=== PATIENT | female | born 1945 | race Caucasian/White ===

== ENCOUNTER → 2019-01-16 09:19 | Outpatient (CLI) | payer MEDICARE, SELFPAY ==
[2019-01-16 10:55] LABS: Alanine Aminotransferase 14 IU/L (9-52); Albumin 4.3 g/dL (3.5-5.0); Albumin Globulin Ratio 1.4 (1.0-2.8); Alkaline Phosphatase 104 U/L (38-126); Aspartate Aminotransferase 20 IU/L (14-36); BUN Creatinine Ratio 27.1 (6-22); Bilirubin Total 0.7 mg/dL (0.2-1.3); Blood Urea Nitrogen 19 mg/dL (7-17); Calcium 9.1 mg/dL (8.4-10.2); Carbon Dioxide 25 mmol/L (22-32); Chloride 106 mmol/L (98-107); Estimated Glomerular Filt Rate > 60.0 mL/min (>60); Globulin 3.1 g/dL (1.7-4.1); Glucose 99 mg/dL (80-110); HEMOLYSIS < 15 (0-50); Potassium 4.5 mmol/L (3.4-5.1); Sodium 139 mmol/L (137-145); Total Protein 7.4 g/dL (6.3-8.2)
== END ==
PROVIDERS: PCP Internal Medicine; Visit Provider Internal Medicine
DX: I10 Essential (primary) hypertension (principal)
CPT/HCPCS: 36415; 80053

== ENCOUNTER → 2019-02-01 13:56 | Outpatient (CLI) | payer MEDICARE, SELFPAY ==
--- NOTE | 2019-02-01 | DI.MG.S_ITS ---
UNILATERAL RIGHT DIGITAL SCREENING MAMMOGRAM 3D/2D WITH CAD POST MASTECTOMY: 02/01/2019 CLINICAL: Screening Mammogram. Comparison is made to exams dated: 08/14/2015 mammogram, 11/06/2012 mammogram, and 09/09/2011 mammogram - [facility]. There are scattered fibroglandular elements in right breast. Current study was also evaluated with a Computer Aided Detection (CAD) system. There is an irregular mass with a spiculated margin in the right breast posterior depth superior region seen on the mediolateral oblique view only. There is architectural distortion associated with the mass. This mass appears to project within the lateral right breast on tomosynthesis views but is not included on the field of view of the RCC images and tomosynthesis. There are additional subcentimeter oval circumscribed masses in the right breast central to the nipple middle to posterior depth and within the superior right breast at middle depth on the RMLO view that appear stable to comparison imaging of 08/14/15, consistent with benignity. No other significant masses or calcifications are seen in the breast. IMPRESSION: INCOMPLETE: NEEDS ADDITIONAL IMAGING EVALUATION The irregular spiculated mass in the right breast posterior depth superior region is indeterminate. Additional views with possible ultrasound are recommended. This exam was interpreted at Station ID: [id number]. NOTE: For mammograms, a report in lay terms will be sent to the patient. Approximately 15% of breast malignancies will not be visualized mammographically. In the management of a palpable breast mass, a negative mammogram must not discourage biopsy of a clinically suspicious lesion. Electronically Signed By: Bethel Aguiar M.D. ecl/:02/01/2019 17:18:17 letter sent: Additional Imaging Needed ACR BI-RADS Category 0: Incomplete [id number]
== END ==
PROVIDERS: PCP Internal Medicine; Visit Provider Internal Medicine
DX: Z12.31 Encounter for screening mammogram for malignant neoplasm of breast (principal)
CPT/HCPCS: 77063; 77067

== ENCOUNTER → 2019-02-25 08:05 | Outpatient (CLI) | payer MEDICARE, SELFPAY ==
--- NOTE | 2019-02-25 | DI.MG.S_ITS ---
UNILATERAL RIGHT DIGITAL DIAGNOSTIC MAMMOGRAM 3D/2D WITH ADDITIONAL VIEWS: 02/25/2019 CLINICAL: Additional evaluation requested from prior study. Comparison is made to exams dated: 02/01/2019 mammogram, 08/14/2015 mammogram, and 11/06/2012 mammogram - [facility]. There are scattered fibroglandular elements in right breast. There is a 2.8 cm irregular mass with a spiculated and microlobulated margin in the right breast posterior depth superior region seen best on the mediolateral oblique view given far posterior position. This is confirmed additional views and represents a change compared to prior years. There is architectural distortion associated with the mass. A new 1.0 cm mass is also seen just lateral and caudal to the main mass. No other significant masses or calcifications are seen in the breast. IMPRESSION: INCOMPLETE: NEEDS ADDITIONAL IMAGING EVALUATION The 2.8 cm and 1.0 cm masses in the right breast are new and indeterminate. An ultrasound is recommended. This was performed immediately following this exam. This exam was interpreted at Station ID: [id number]. NOTE: For mammograms, a report in lay terms will be sent to the patient. Approximately 15% of breast malignancies will not be visualized mammographically. In the management of a palpable breast mass, a negative mammogram must not discourage biopsy of a clinically suspicious lesion. Electronically Signed By: Marian zaragoza/:02/25/2019 08:56:11 ACR BI-RADS Category 0: Incomplete [id number]
--- NOTE | 2019-02-25 08:09 | DI.US.S_ITS ---
LIMITED ULTRASOUND OF RIGHT BREAST: 02/25/2019 CLINICAL: Patient returns today to evaluate a density in the right breast. Comparison is made to exams dated: 02/25/2019 mammogram, 02/01/2019 mammogram, 08/14/2015 mammogram, 11/06/2012 mammogram, 09/09/2011 mammogram, and 12/22/2009 mammogram - [facility]. Color flow and real-time ultrasound of the right breast upper outer quadrant were performed. Bullock scale images of the real-time examination were reviewed. There is a 2.4 cm x 1.8 cm x 1.3 cm irregular mass with a microlobulated and spiculated margin in the right breast at 1 o'clock posterior depth 5 cm from the nipple. This irregular mass is hypoechoic. This correlates with mammography findings. Color flow imaging demonstrates that there is vascularity present. There also is a 1.3 cm x 0.3 cm x 0.5 cm oval mass in the right breast at 10 o'clock middle depth 5 cm from the nipple with the long axis perpendicular to the skin. This correlates with mammography findings. Color flow imaging demonstrates that there is no increase in vascularity. Additionally, there is a 2.1 cm x 0.9 cm x 1.4 cm lymph node with a non-circumscribed margin in the right axillary tail. There is suspicious loss of cortical definition. IMPRESSION: SUSPICIOUS OF MALIGNANCY The 2.4 cm x 1.8 cm x 1.3 cm irregular mass in the right breast at 1 o'clock posterior depth is at a moderate suspicion for malignancy. An ultrasound guided biopsy is recommended. The 1.3 cm x 0.3 cm x 0.5 cm oval mass in the right breast at 10 o'clock middle depth is at a low suspicion for malignancy. An ultrasound guided biopsy is recommended. The 2.1 cm x 0.9 cm x 1.4 cm lymph node in the right axillary tail is at a low suspicion for malignancy. An ultrasound guided biopsy is recommended. Findings and recommendations were discussed with the patient by Dr. Crawford in person at time of exam. This exam was interpreted at Station ID: [id number]. Electronically Signed By: Marian zaragoza/:02/25/2019 11:08:07 letter sent: Biopsy Required Ultrasound BI-RADS: 4b Moderate suspicion of malignancy
== END ==
PROVIDERS: PCP Internal Medicine; Visit Provider Internal Medicine
DX: R92.8 Other abnormal and inconclusive findings on diagnostic imaging of breast (principal); N63.12 Unspecified lump in the right breast, upper inner quadrant; N63.11 Unspecified lump in the right breast, upper outer quadrant
CPT/HCPCS: 76642; 77065; G0279

== ENCOUNTER → 2019-03-22 07:54 | Outpatient (CLI) | payer MEDICARE, SELFPAY ==
--- NOTE | 2019-03-22 | PATH_ITS ---
[facility] Accession Number: [id number] . 01 Material submitted: . PART A: breast - RIGHT BREAST 1:00 5CM FN PART B: breast - RIGHT BREAST 9:30 5CM FN . 01 Diagnosis: A. Right Breast, 1 o'clock, 5 cm From Nipple, Biopsy: Invasive (ductal) carcinoma, grade 3 of 3 ([place] combined histologic grade, total score 9/9) with the following features: 1. Tubular differentiation: Little or none. (3/3) 2. Nuclear pleomorphism: High. (3/3) 3. Mitotic rate: High. (3/3) 4. Size of invasive carcinoma: Present on multiple cores, single large dimension of 1.2 cm in this sample. 5. Ductal carcinoma in situ: Not definitively identified. 6. Calcifications: Present, in stroma associated with invasive carcinoma. 7. Lymphatic invasion: Not identified in this specimen. 8. Prognostic markers: a. Estrogen receptor status: Positive (>95% tumor cells staining, staining intensity: strong). b. Progesterone receptor status: Positive (5% tumor cells staining, staining intensity: weak to moderate). C. HER2 status: Equivocal (2+) for protein overexpression; FISH studies for Her2 gene amplification are pending and results will be reported in an addendum. . B. Right Breast, 9:30 o'clock, 5 cm from Nipple, Biopsy: Breast parenchyma with fibrocystic change including usual ductal hyperplasia, columnar cell change/columnar cell hyperplasia, adenosis with associated microcalcifications, cystic duct dilatation, and stromal fibrosis. Negative for atypia, carcinoma in situ, and malignancy. V 03/25/2019 1821 Local . 01 Comment: Dr. Kotsali reviewed part B and agrees with the diagnosis. . 01 Electronically signed: . Kristyn Diehl MD, Pathologist NPI- [id number] . 01 Gross description: . Part A: RIGHT BREAST 1:00 5CM FN: Received in formalin are multiple fragment(s) of black, soft tissue measuring 0.1 x 0.1 x 0.1 cm to 1.5 x 0.2 x 0.2 cm which are entirely submitted and submitted entirely in 1 cassette(s) Part B: RIGHT BREAST 9:30 5CM FN: Received in formalin are multiple fragment(s) of black, soft tissue measuring 0.1 x 0.1 x 0.1 cm to 1.3 x 0.3 x 0.3 cm submitted entirely in 1 cassette(s) /[facility] [place] COLLECTION DATE:03/22/19 COLLECTION TIME A)9:40 AM B)9:50 AM FIXATION TIME APPROX 29 HOURS /[facility] [place] 03/22/2019 2253 Local . 01 Microscopic: . A. Given the poor differentiation of the invasive carcinoma and in the absence of definitive ductal carcinoma in situ, GATA3 immunostain is performed on block A1 with appropriately staining external controls, and is positive in the invasive carcinoma in support of breast primary; see additional IHC below related to this part. . B. CK5/6 and ER are performed on areas of ductal hyperplasia in order to assess for a neoplastic proliferation in block B1, with appropriately staining external controls. The areas of interest demonstrate a mosaic pattern of CK5/6 and ER immunoreactivity in support of usual ductal hyperplasia. . A. Predictive marker immunohistochemical studies are performed on block A1 with the invasive carcinoma showing the following results: . Estrogen receptor (SP1): Positive (>95%, Strong intensity). Progesterone receptor (1E2): Positive (5%, weak to moderate intensity). Her2 (4B5): Equivocal (2+) for protein overexpression; FISH studies for Her2 gene amplification are pending and results will be reported in an addendum. . Internal controls for ER and KS are not present. Cold ischemic time is <5 minutes. The scoring criteria for breast biomarkers by immunohistochemistry is based on the ASCO/CAP guidelines (Aziza AC et al, J Clin Oncol: 2017Oct 10;36(20):9232-2570 and Thom ME et al, Arch Pathol Lab Med: 2009;134(6):907-22). Deparaffinized sections of formalin fixed tissue (along with appropriate positive controls) are incubated with the above antibody(s). Using the automated Chaplin stainer, tissue is incubated with the designated antibody which is then localized by a non-biotin, dual polymer detection system. The external controls are reviewed for appropriate reactivity and found to be adequate. Results on the target cell population are indicated above. These tests have not been validated on decalcified tissue. This test was developed and its performance characteristics determined by [employer]. It has not been cleared or approved by the U.S. Food and Drug Administration. The FDA has determined that such clearance or approval is not necessary. This test is used for clinical purposes. It should not be regarded as investigational or for research. . 01 Pathologist provided ICD-10: C50.211 . 01 CPT . 073472, 076823, L98431, N62362, 202295, 921414, 474346 Performed at: 01 [facility] [address] [place] [address], [place], [place] [id number] MD Colt Rocha MD Phone: [phone]
--- NOTE | 2019-03-22 | PATH_ITS ---
[facility] Accession Number: [id number] . 01 Material submitted: . axilla - RIGHT AXILLA LYMPH NODE . 02 Diagnosis: Right Axilla Lymph Node, Core Needle Biopsies: Lymphoid tissue, negative for metastatic carcinoma. Please see comment. [facility] 03/26/2019 1319 Local . 02 Comment: The right axillary lymph node shows multiple core needle biopsy fragments of lymphoid tissue negative for metastatic carcinoma by H/E and immunohistochemistry. This specimen will be forwarded to a hematopathologist in consultation and their results reported as an addendum. . 02 Electronically signed: . Elke Mccallum MD, Pathologist NPI- [id number] . 01 Gross description: . RIGHT AXILLA LYMPH NODE: Received in formalin are 3 fragment(s) of black, soft tissue measuring 0.3 x 0.1 x 0.1 cm to 0.5 x 0.1 x 0.1 cm submitted entirely in 1 cassette(s) /[facility] 03/22/2019 2245 Local . 02 Microscopic: . An immunohistochemical stain was performed to characterize the cells of interest. The control stain showed appropriate reactivity. . RESULTS: Cytokeratin [place]: Negative. . Interpretation: No evidence of epithelial cells by immunohistochemistry. . * This test was developed and its performance characteristics determined by [facility]. It has not been cleared or approved by the U.S. Food and Drug Administration. The FDA has determined that such clearance or approval is not necessary. This test is used for clinical purposes. It should not be regarded as investigational or for research. . 02 Pathologist provided ICD-10: N63.0 . 02 CPT . 754449, S11146 Performed at: 01 [facility] [address] [id number] MD Colt Rocha MD Phone: [phone] Performed at: 02 [facility] [address] [place] [id number] MD Elke Mccallum MD Phone: [phone]
--- NOTE | 2019-03-22 | DI.MG.S_ITS ---
UNILATERAL RIGHT DIGITAL DIAGNOSTIC MAMMOGRAM POST-NEEDLE BIOPSY: 03/22/2019 CLINICAL: Right breast mass. Comparison is made to exams dated: 02/25/2019 ultrasound, 02/25/2019 mammogram, 02/01/2019 mammogram, and 11/06/2012 mammogram - [facility]. There are scattered fibroglandular elements in right breast. There is a marker clip in the appropriate position in the right breast at 11 o'clock posterior depth. This marker clip placement is at the biopsy site. There also is a marker clip in the appropriate position in the right breast middle depth central to the nipple seen on the mediolateral oblique view only. This marker clip placement is at the biopsy site. IMPRESSION: POST PROCEDURE MAMMOGRAM FOR MARKER PLACEMENT There was a successful marker clip placement in the right breast at 11 o'clock posterior depth. There was a successful marker clip placement in the right breast middle depth central to the nipple seen on the mediolateral oblique view only. Right axillary lymph node marker clip not able to be mammographically visualized given extreme position. This exam was interpreted at Station ID: [id number]. NOTE: For mammograms, a report in lay terms will be sent to the patient. Approximately 15% of breast malignancies will not be visualized mammographically. In the management of a palpable breast mass, a negative mammogram must not discourage biopsy of a clinically suspicious lesion. Electronically Signed By: Mundo samayoa/:03/22/2019 14:21:56 ACR BI-RADS Category Post-procedure mammogram for marker placement
--- NOTE | 2019-03-22 07:58 | DI.US.S_ITS ---
MULTIPLE ULTRASOUND GUIDED BIOPSIES RIGHT BREAST USING VACUUM DEVICE WITH MARKING DEVICES INSERTED: 03/22/2019 CLINICAL: Right breast masses and axillary lymph node. PATIENT CONSENT: Risks (minor bleeding, infection, vasovagal reaction and repeat procedure), benefits and alternatives were explained to the patient and written informed consent was obtained. Correlation is made to exams dated: 03/22/2019 mammogram, 02/25/2019 mammogram, 02/25/2019 ultrasound, 02/01/2019 mammogram, 08/14/2015 mammogram, and 11/06/2012 mammogram [facility]. An ultrasound guided biopsy using real-time ultrasound was performed for the irregular shaped mass located in the right breast at 1 o'clock posterior depth. The skin was prepped in the usual manner. Local anesthetic was administered to the access site. A small incision was made in the breast. The abnormality was approached from the lateral aspect. A biopsy needle was placed adjacent to the abnormality under ultrasound guidance. Once the needle was documented to be in the correct location, six specimens were obtained using the Mammotome biopsy system. A clip was inserted into the biopsy cavity. The specimens were sent to the laboratory for pathological analysis. A second ultrasound guided biopsy using real-time ultrasound was performed for the mass located in the right breast at 10 o'clock posterior depth. The skin was prepped in the usual manner. Local anesthetic was administered to the access site. A small incision was made in the breast. The abnormality was approached from the lateral aspect. A biopsy needle was placed adjacent to the abnormality under ultrasound guidance. Once the needle was documented to be in the correct location, six specimens were obtained using the Mammotome biopsy system. A clip was inserted into the biopsy cavity. The specimens were sent to the laboratory for pathological analysis. A third ultrasound guided biopsy using real-time ultrasound was performed for the lymph node located in the right axillary tail. The skin was prepped in the usual manner. Local anesthetic was administered to the access site. The abnormality was approached from the lateral aspect. A biopsy needle was placed adjacent to the abnormality under ultrasound guidance. Once the needle was documented to be in the correct location, four specimens were obtained using a BARD biopsy device. A clip was inserted into the biopsy cavity. The specimens were sent to the laboratory for pathological analysis. IMPRESSION: ULTRASOUND GUIDED BIOPSY MALIGNANT Ultrasound guided biopsy of the mass in the right breast at 1 o'clock posterior depth was successful. Pathology indicates malignant invasive ductal carcinoma (ID). Pathology results are concordant with imaging findings. A surgical/oncologic consultation is recommended. Ultrasound guided biopsy of the mass in the right breast at 10 o'clock posterior depth was successful. Pathology indicates benign adenosis (AD) with micro-calcifications , cystic ductal dilatation, usual ductal hyperplasia (DHU), fibrocystic changes (FC), columnar cell change, and stromal fibrosis present. Pathology results are concordant with imaging findings. Ultrasound guided biopsy of the lymph node in the right axilla was successful. Pathology indicates benign lymph node (LN). Pathology results are concordant with imaging findings. This exam was interpreted at Station ID: [id number]. Mundo samayoa,aty/:04/01/2019 19:22:01
--- NOTE | 2019-03-22 09:00 | DI.US.S_ITS ---
Patient Name: JAZ STYLES date: 1945 Sex: F Attending Physician: Sonny Indications: Date: 03/22/2019 10:45 At the request of: JOSÉ CONROY Procedure: US bx breast perc w vac device MULTIPLE ULTRASOUND GUIDED BIOPSIES RIGHT BREAST USING VACUUM DEVICE WITH MARKING DEVICES INSERTED: 03/22/2019 CLINICAL: Right breast masses and axillary lymph node. PATIENT CONSENT: Risks (minor bleeding, infection, vasovagal reaction and repeat procedure), benefits and alternatives were explained to the patient and written informed consent was obtained. Correlation is made to exams dated: 03/22/2019 mammogram, 02/25/2019 mammogram, 02/25/2019 ultrasound, 02/01/2019 mammogram, 08/14/2015 mammogram, and 11/06/2012 mammogram - [facility]. An ultrasound guided biopsy using real-time ultrasound was performed for the irregular shaped mass located in the right breast at 1 o'clock posterior depth. The skin was prepped in the usual manner. Local anesthetic was administered to the access site. A small incision was made in the breast. The abnormality was approached from the lateral aspect. A biopsy needle was placed adjacent to the abnormality under ultrasound guidance. Once the needle was documented to be in the correct location, six specimens were obtained using the Mammotome biopsy system. A clip was inserted into the biopsy cavity. The specimens were sent to the laboratory for pathological analysis. A second ultrasound guided biopsy using real-time ultrasound was performed for the mass located in the right breast at 10 o'clock posterior depth. The skin was prepped in the usual manner. Local anesthetic was administered to the access site. A small incision was made in the breast. The abnormality was approached from the lateral aspect. A biopsy needle was placed adjacent to the abnormality under ultrasound guidance. Once the needle was documented to be in the correct location, six specimens were obtained using the Mammotome biopsy system. A clip was inserted into the biopsy cavity. The specimens were sent to the laboratory for pathological analysis. A third ultrasound guided biopsy using real-time ultrasound was performed for the lymph node located in the right axillary tail. The skin was prepped in the usual manner. Local anesthetic was administered to the access site. The abnormality was approached from the lateral aspect. A biopsy needle was placed adjacent to the abnormality under ultrasound guidance. Once the needle was documented to be in the correct location, four specimens were obtained using a BARD biopsy device. A clip was inserted into the biopsy cavity. The specimens were sent to the laboratory for pathological analysis. Continued Report - Page 2 of 2 Patient Name: JAZ STYLES date: 1945 Sex: F Attending Physician: Sonny Indications: Date: 03/22/2019 10:45 At the request of: JOSÉ CONROY Procedure: US bx breast perc w vac device IMPRESSION: ULTRASOUND GUIDED BIOPSY MALIGNANT Ultrasound guided biopsy of the mass in the right breast at 1 o'clock posterior depth was successful. Pathology indicates malignant invasive ductal carcinoma (ID). Pathology results are concordant with imaging findings. A surgical/oncologic consultation is recommended. Ultrasound guided biopsy of the mass in the right breast at 10 o'clock posterior depth was successful. Pathology indicates benign adenosis (AD) with micro-calcifications , cystic ductal dilatation, usual ductal hyperplasia (DHU), fibrocystic changes (FC), columnar cell change, and stromal fibrosis present. Pathology results are concordant with imaging findings. Ultrasound guided biopsy of the lymph node in the right axilla was successful. Pathology indicates benign lymph node (LN). Pathology results are concordant with imaging findings. This exam was interpreted at Station ID: [id number]. Mundo samayoa,aty/:04/01/2019 19:22:01
== END ==
PROVIDERS: PCP Internal Medicine; Visit Provider Internal Medicine
DX: C50.211 Malignant neoplasm of upper-inner quadrant of right female breast (principal); N60.31 Fibrosclerosis of right breast; N60.21 Fibroadenosis of right breast; N60.41 Mammary duct ectasia of right breast; Z17.0 Estrogen receptor positive status [ER+]
CPT/HCPCS: 19083; 19084; 38505; 76942; 77065

== ENCOUNTER → 2021-02-19 08:22 | Outpatient (CLI) | payer MEDICARE, SELFPAY ==
[2021-02-19 10:24] LABS: Alanine Aminotransferase 15 IU/L (<35); Albumin 4.2 g/dL (3.5-5.0); Albumin Globulin Ratio 1.4 (1.0-2.8); Alkaline Phosphatase 95 U/L (38-126); Aspartate Aminotransferase 23 IU/L (14-36); BUN Creatinine Ratio 13.8 (6-22); Bilirubin Total 0.7 mg/dL (0.2-1.3); Blood Urea Nitrogen 11 mg/dL (7-17); Calcium 9.5 mg/dL (8.4-10.2); Carbon Dioxide 29 mmol/L (22-32); Chloride 103 mmol/L (98-107); Cholesterol 201 mg/dL (140-199); Estimated Glomerular Filt Rate > 60.0 mL/min (>60); Globulin 3.1 g/dL (1.7-4.1); Glucose 104 mg/dL (80-110); HDL Cholesterol 64 mg/dL (40-60); HEMOLYSIS < 15 (0-50); LDL Cholesterol Calculated 108 mg/dL (<100); Potassium 4.4 mmol/L (3.4-5.1); Sodium 140 mmol/L (137-145); Total Protein 7.3 g/dL (6.3-8.2); Triglycerides 146 mg/dL (35-150)
== END ==
PROVIDERS: PCP Internal Medicine; Referring Provider Internal Medicine; Visit Provider Internal Medicine
DX: I10 Essential (primary) hypertension (principal); Z13.220 Encounter for screening for lipoid disorders
CPT/HCPCS: 36415; 80053; 80061

== ENCOUNTER 2021-12-02 16:26 | Emergency (ER) | payer MEDICARE, SELFPAY ==
[2021-12-02 16:32] VITALS: BP 144/88; PULSE 101; RESP 18; TEMP 37.2; O2SAT 97; BMI 35.2
[2021-12-02 17:45] LABS: Alanine Aminotransferase 28 IU/L (<35); Albumin 4.2 g/dL (3.5-5.0); Albumin Globulin Ratio 1.1 (1.0-2.8); Alkaline Phosphatase 124 U/L (38-126); Aspartate Aminotransferase 46 IU/L (14-36); BUN Creatinine Ratio 19.6 (6-22); Bilirubin Total 0.8 mg/dL (0.2-1.3); Blood Urea Nitrogen 19 mg/dL (7-17); Calcium 9.1 mg/dL (8.4-10.2); Carbon Dioxide 23 mmol/L (22-32); Chloride 105 mmol/L (98-107); Estimated Glomerular Filt Rate > 60 mL/min (>60); Globulin 3.9 g/dL (1.7-4.1); Glucose 107 mg/dL (80-110); HEMOLYSIS 16 (0-50); Lipase 52 U/L (23-300); Potassium 3.6 mmol/L (3.4-5.1); Sodium 138 mmol/L (137-145); Total Protein 8.1 g/dL (6.3-8.2)
[2021-12-02 17:55] LABS: Add Manual Diff / Slide Review NO; Basophils Absolute Auto 100 /uL (0-100); Basophils Percent Auto 0.5 % (0-2); Eosinophils Absolute Auto 100 /uL (0-450); Eosinophils Percent Auto 0.5 % (2-4); Hematocrit 43.4 % (36-46); Hemoglobin 14.5 g/dL (12.0-16.0); Lymphocytes Absolute Auto 2500 /uL (1100-4500); Lymphocytes Percent Auto 14.1 % (25-40); Mean Corpuscular HGB Conc 33.5 % (30-36); Mean Corpuscular Hemoglobin 29.5 PG (26-34); Monocytes Absolute Auto 1200 /uL (0-900); Neutrophils Absolute Auto 13600 /uL (1500-7000); Neutrophils Percent Auto 77.9 % (50-75); Platelet Count 170 X10^3/uL (150-400); Red Blood Cell Count 4.93 X10^6/uL (4.0-5.2); Red Cell Distribution Width 13.9 % (11.6-14.8); White Blood Cell Count 17.5 X10^3/uL (4.5-11.0)
[2021-12-02 18:16] LABS: Bacteria Urine Few (2-10); Calcium Oxalate Crystals Urine Many; Mucus Urine 3+ (Negative); RBC Urine 1-5/HPF (0-5/HPF); Squamous Epithelial Cell Urine 1-5 /HPF (0-5/HPF); Transitional Epi Cells Urine 0-1/HPF (0-5/HPF); WBC Urine 1-5/HPF (0-5/HPF)
[2021-12-02 18:17] LABS: Hyaline Casts Urine 30-100/LPF
[2021-12-02 18:18] LABS: Culture Indicated Urine Specimen Cultured
[2021-12-02 19:42] VITALS: BP 134/89; PULSE 95; RESP 20; O2SAT 96
--- NOTE | 2021-12-02 20:36 | ED.ABDPAIN ---
HPI - Abdominal Pain General Chief Complaint: Abdominal Pain Stated Complaint: abdominal pain Time Seen by Provider: 12/02/21 19:43 Source: patient Mode of arrival: Ambulatory History of Present Illness HPI narrative: 76-year-old female nonsmoker with history of hypertension and breast cancer presents with her in the chief complaint of low pelvic pain for least the past few days. She is had some nausea but denies vomiting. She denies any fever or chills but admits to poor appetite, generalized abdominal discomfort and frequent loose stools. She denies any recent antibiotics, international travel, bad food or blood in her stool. She denies dysuria, frequency or urgency and has had no vaginal bleeding or discharge. She denies obvious provocation with eating but against states she does not have a great appetite. She states her pain tends to be worse when she moves and improves with rest Related Data Home Medications Medication Instructions Recorded Confirmed fluticasone propionate 50 2 spray intranasal HS PRN 01/24/19 12/16/21 mcg/actuation nasal Congestion spray,suspension acetaminophen 500 mg capsule 500 mg PO Q6H PRN Pain 02/21/20 12/16/21 anastrozole 1 mg tablet 1 mg PO DAILY 02/21/20 12/16/21 bisacodyl 5 mg tablet 5 mg PO ONCE PRN Constipation 02/21/20 12/16/21 calcium carbonate 500 mg-vitamin 1 tab PO DAILY 02/21/20 12/16/21 D3 3.125 mcg (125 unit) tablet loperamide 2 mg capsule (Imodium 2 mg PO DAILY PRN Diarrhea 02/21/20 12/16/21 A-D) multivitamin 1 tab PO DAILY 02/21/20 12/16/21 ondansetron HCl 8 mg tablet 8 mg PO Q8H 02/21/20 12/16/21 (Zofran) prochlorperazine maleate 10 mg 10 mg PO Q6-8H PRN Nausea, vomiting 02/21/20 12/16/21 tablet Previous Rx's Medication Instructions Recorded felodipine 5 mg tablet,extended 5 mg PO QDAY #90 tabs 05/13/21 release 24 hr hydrocodone 5 mg-acetaminophen 325 1 tab PO Q4-6H PRN pain #10 tabs 12/03/21 mg tablet Allergies Allergy/AdvReac Type Severity Reaction Status Date / Time chlorhexidine Allergy Intermediate Dermatitis Verified 12/15/21 13:35 latex Allergy Intermediate Dermatitis Verified 12/15/21 13:35 montelukast [From Singulair] Allergy Intermediate Headache Verified 12/15/21 13:35 silver Allergy Intermediate Rash/Dermat Verified 12/15/21 13:35 itis aspirin [ASPIRIN] Allergy Mild Respiratory Verified 12/16/21 14:44 distress grape [GRAPE] Allergy Mild RESPIRATORY Verified 12/15/21 13:35 DISTRESS lisinopril [LISINOPRIL] Allergy Unknown cough Verified 12/15/21 13:35 Iodinated Contrast Media Allergy Respiratory Verified 12/16/21 14:44 distress celecoxib [From Celebrex] AdvReac Intermediate GI Verified 12/15/21 13:35 intolerance TARTRAZINE Allergy Severe RESPIRATORY Uncoded 12/15/21 13:35 DISTRESS FOOD COLORING Allergy Mild RESPIRATORY Uncoded 12/15/21 13:35 DISTRESS Review of Systems Review of Systems Narrative: GENERAL: See HPI HEENT: Denies sinus pain, ear pain, sore throat, difficulty swallowing, dizziness. RESPIRATORY: Denies dyspnea, cough, wheezing, hemoptysis, sputum. CARDIOVASCULAR: Denies chest pain, palpitations, orthopnea, edema, GASTROINTESTINAL: See HPI : See HPI MUSCULOSKELETAL: denies weakness, joint pain, or bony pain SKIN: Denies rash, skin lesions, or other NEUROLOGIC: Denies weakness, headache, numbness, change in speech, confusion, seizures, incoordination. PSYCHIATRIC: No concerning psychosocial issues. 12 point review of systems is negative except for those stated above Patient History Medical History (Updated 12/18/21 @ 00:00 by ) Abnormal CXR (chest x-ray) (1991) Asthma (1979) Breast cancer, left breast (1991) Breast cancer, right breast (1991) Clavicle fracture (1974) Easy bruisability HTN (hypertension) Kidney stones Mitral valve prolapse (1973) MRSA infection (2013) Positive PPD (~1949) Recurrent sinusitis (1972) Sinus drainage Surgical History (Updated 12/16/21 @ 14:42 by Keke Frank RN) Anesthesia complication History of breast augmentation (2013) History of nasal polypectomy (~1975) History of sinus surgery (~1979) History of total mastectomy (1991) Hx of bilateral cataract extraction S/P right mastectomy (04/25/19) Status post left breast reconstruction (1992) Status post reduction mammoplasty (1992) Family History Grandmother Diabetes mellitus Grandfather Family history of diabetes mellitus (DM) Diabetes mellitus Parkinson's disease Grandmother Family history of diabetes mellitus (DM) Heart disease Stroke Father MVA (motor vehicle accident) Tuberculosis Mother MVA (motor vehicle accident) Grandfather No problems noted. Family/Other Family history of diabetes mellitus (DM) Social History household members: spouse Smoking Status: Never smoker alcohol intake: never Smoking Status: Never smoker alcohol intake frequency: 0-2 drinks per day Substance Use Type: does not use Exam Narrative Exam Narrative: GENERAL: [76] year old patient appears stated age. Well-developed patient, in mild distress. HEAD: Atraumatic. Normocephalic. EYES: Pupils equal round and reactive. Extraocular motions intact. No scleral icterus. No injection or drainage. ENT: Nose without bleeding, purulent drainage. Throat without erythema, tonsillar hypertrophy or exudate. Airway patent. NECK: Trachea midline. Non tender CARDIOVASCULAR: Regular rate and rhythm without murmurs, gallops, or rubs. RESPIRATORY: Clear to auscultation. Breath sounds equal bilaterally. No wheezes, rales, or rhonchi. GASTROINTESTINAL: Abdomen soft, moderate suprapubic tenderness and fullness, nondistended. Bowel sounds present in all 4 quadrants EXTREMITIES: No edema or joint tenderness. BACK: Nontender without deformity or crepitance. No flank tenderness. NEURO: AOx3. SKIN: No rash or erythema of visible areas Initial Vital Signs Initial Vital Signs: Vital Signs Temperature 99 F 12/02/21 16:32 Pulse Rate 101 H 12/02/21 16:32 Respiratory Rate 18 12/02/21 16:32 Blood Pressure 144/88 H 12/02/21 16:32 Pulse Oximetry 97 12/02/21 16:32 Oxygen Delivery Method 12/02/21 16:32 Course Orders Ordered: Discontinued Medications Diphenhydramine HCl (Diphenhydramine 50 Mg/Ml Vial) 25 mg IV NOW ONE Stop: 12/02/21 20:37 Last Admin: 12/02/21 21:06 Dose: 25 mg Documented By: AT Famotidine (Famotidine 20 Mg/2 Ml Vial) 20 mg IV NOW JANETTE Last Admin: 12/02/21 21:07 Dose: 20 mg Documented By: AT Methylprednisolone (Methylprednisolone 125 Mg/2 Ml Vial) 125 mg IV NOW ONE Stop: 12/02/21 20:37 Last Admin: 12/02/21 21:05 Dose: 125 mg Documented By: AT Consultations Consultation #1: Discussed with on-call strategic analyst (Dr. Mcconnell) after discussing the history and physical as well as labs and imaging she recommends I send a copy of the chart to her office and the patient should expect a call from her office today. She will likely need surgery but does not knee hospitalization Vital Signs Vital signs: Vital Signs - 8 hr 12/02/21 21:00 12/02/21 23:15 12/02/21 23:30 Pulse Rate 90 86 87 Respiratory Rate 16 Blood Pressure 141/87 H Pulse Oximetry 99 97 96 Oxygen Delivery Method Room Air Room Air 12/03/21 00:00 12/03/21 00:30 12/03/21 00:42 Pulse Rate 87 87 87 Respiratory Rate Blood Pressure Pulse Oximetry 96 96 97 Oxygen Delivery Method Room Air 12/03/21 00:44 Pulse Rate Respiratory Rate Blood Pressure 144/68 H Pulse Oximetry Oxygen Delivery Method MDM - Abdominal Pain Lab Data Result diagrams: 12/02/21 16:55 12/02/21 16:55 Labs: Lab Results 12/02/21 12/02/21 12/02/21 Range/Units 16:55 16:55 17:00 WBC 17.5 H (4.5-11.0) X10^3/uL RBC 4.93 (4.0-5.2) X10^6/uL Hgb 14.5 (12.0-16.0) g/dL Hct 43.4 (36-46) % MCV 88.0 (80-100) fL MCH 29.5 (26-34) PG MCHC 33.5 (30-36) % RDW 13.9 (11.6-14.8) % Plt Count 170 (150-400) X10^3/uL Neut % (Auto) 77.9 H (50-75) % Lymph % (Auto) 14.1 L (25-40) % [place] % (Auto) 7.0 (3-14) % Eos % (Auto) 0.5 L (2-4) % Baso % (Auto) 0.5 (0-2) % Neut # (Auto) 68092 H (7181-5699) /uL Lymph # (Auto) 2500 (1547-3659) /uL [place] # (Auto) 1200 H (0-900) /uL Eos # (Auto) 100 (0-450) /uL Baso # (Auto) 100 (0-100) /uL Sodium 138 (137-145) mmol/L Potassium 3.6 (3.4-5.1) mmol/L Chloride 105 (98-107) mmol/L Carbon Dioxide 23 (22-32) mmol/L BUN 19 H (7-17) mg/dL Creatinine 0.97 (0.52-1.04) mg/dL Estimated GFR > 60 (>60) mL/min BUN/Creatinine Ratio 19.6 (6-22) Glucose 107 (80-110) mg/dL Calcium 9.1 (8.4-10.2) mg/dL Total Bilirubin 0.8 (0.2-1.3) mg/dL AST 46 H (14-36) IU/L ALT 28 (<35) IU/L Alkaline Phosphatase 124 (38-126) U/L Total Protein 8.1 (6.3-8.2) g/dL Albumin 4.2 (3.5-5.0) g/dL Globulin 3.9 (1.7-4.1) g/dL Albumin/Globulin Ratio 1.1 (1.0-2.8) Lipase 52 (23-300) U/L Urine RBC 1-5/hpf (0-5/HPF) Urine WBC 1-5/hpf (0-5/HPF) Ur Squamous Epith Cells 1-5 /hpf (0-5/HPF) Ur Transition Epith Cell 0-1/hpf (0-5/HPF) Calcium Oxalate Crystal Many H Urine Bacteria Few (2-10) H (None) Hyaline Casts 30-100/lpf (None) Urine Mucus 3+ H (Negative) Ur Culture Indicated? Specimen cultured Point of care testing: Urine Dip Bedside Urine Glucose Negative Bedside Urine Bilirubin + 1 Bedside Urine Ketone +/- 5 Urine Specific [place] 1.030 Bedside Urine Occult Blood +/- Bedside Urine pH 6.0 Bedside Urine Protein + 30 Bedside Urine Urobilinogen +/- 1mg Bedside Urine Nitrite - Negative Bedside Urine Leukocytes +/- 15 Esterase MDM Narrative Medical decision making narrative: Patient with increasing pelvic pain and some loose stools. She is hemodynamically stable, has no fever. Urine is unremarkable CT shows a large pelvic mass and possibly a mild colitis. Will hold off on antibiotics for now, given low likelihood of bacterial infection patient's pain is well controlled. Patient given return precautions and questions answered to her apparent satisfaction Discharge Plan Departure Patient Disposition: Home Clinical Impression: Pelvic mass, Colitis Instructions: DI for Colitis Activity Restrictions/Additional Instructions: *You have been diagnosed with [pelvic mass and possible mild colitis] *What to do: *Please continue to take your regular medications as directed. [x ] New medication prescriptions sent to your pharmacy: [[facility] ] [ ] New medication written as a paper prescription [ ] No new medications given * please expect a call from Dr. Mcconnell's office later today to help create a plan moving forward to address this pelvic mass *Return to Emergency Department if you should have any new, worsening or concerning symptoms, such as [fever greater than 101 F, shaking chills, worsening pain, persistent vomiting or other bothersome symptoms] You have been prescribed a short course of narcotic medications. These are potentially dangerous and addictive medications that should be used carefully. While on these medications you cannot drive or operate heavy machinery. Additionally, you cannot sign legal documents or perform any duties such as this. Many people get constipated on narcotic medications so it would be advisable to discuss stool softeners with the pharmacist when you roller picker your prescription. Please understand that we cannot provide further refills of narcotics or controlled substances through the ED and your pain management will need to be through your Primary Care Provider Prescriptions: New hydrocodone-acetaminophen 5-325 mg tablet 1 tab PO Q4-6H PRN (Reason: pain) Qty: 10 0RF No Action felodipine 5 mg tablet extended release 24 hr 5 mg PO QDAY Qty: 90 3RF calcium carbonate-vitamin D3 500 mg(1,250mg) -125 unit tablet 1 tab PO DAILY multivitamin Tablet 1 tab PO DAILY anastrozole 1 mg tablet 1 mg PO DAILY loperamide [Imodium A-D] 2 mg capsule 2 mg PO DAILY PRN (Reason: Diarrhea) Rx Instructions: PRN bisacodyl 5 mg tablet 5 mg PO ONCE PRN (Reason: Constipation) Rx Instructions: PRN prochlorperazine maleate 10 mg tablet 10 mg PO Q6-8H PRN (Reason: Nausea, vomiting) ondansetron HCl [Zofran] 8 mg tablet 8 mg PO Q8H acetaminophen 500 mg capsule 500 mg PO Q6H PRN (Reason: Pain) fluticasone propionate 50 mcg/actuation spray,suspension 2 spray Intranasal HS PRN (Reason: Congestion) Rx Instructions: Uses during seasonal allergies. Referrals: Lizette Mcconnell MD [Physician] - Wan Dennis MD [Primary Care Provider] - Visit Report Forms: Patient Portal/API
[2021-12-02 21:00] VITALS: BP 141/87; PULSE 90; RESP 16; O2SAT 99
[2021-12-02] MEDS: methylPREDNISolone 125 MG/2 ML VIAL IV (21:05)
[2021-12-02] MEDS: diphenhydrAMINE 50 MG/ML VIAL 25 MG IV (21:06)
[2021-12-02] MEDS: FAMOTIDINE 20 MG/2 ML VIAL IV (21:07)
--- NOTE | 2021-12-02 21:29 | DI.CT.S_ITS ---
PROCEDURE: CT ABDOMEN PELVIS W CON INDICATIONS: severe lower abdominal pain, fever, elevated WBCs TECHNIQUE: After the administration of IV contrast, axial sections were acquired from the lung bases to the pubic symphysis. Coronal and sagittal reformats were performed. For radiation dose reduction, the following was used: automated exposure control, adjustment of mA and/or kV according to patient size. COMPARISON: [facility], CT, CT CHEST WITHOUT CONTRAST, 09/04/2019, 14:31. [facility], CT, CT CHEST WITHOUT CONTRAST, 07/14/2021, 12:08. FINDINGS: Image quality: Excellent. Lung bases: There is mild dependent atelectasis and scarring in the lung bases. There is a small subpleural nodule in the right lower lobe on series 3, image 2 measuring approximately 0.2 cm, slightly decreased from 0.3 cm on the prior study. There are partially visualized bilateral breast implants. Heart: Heart is normal in size. There is a small hiatal hernia. ABDOMEN: Liver: A small oval hypodensity is redemonstrated within segment 8 of the right hepatic lobe anteriorly measuring up to 0.7 cm. The finding is too small to characterize but appears unchanged compared to the prior studies and likely represents a cyst. Gallbladder: Within normal limits without calcified gallstones. Biliary ducts: No biliary ductal dilatation. Pancreas: Unremarkable. Spleen: Normal in size. Adrenal Glands: No adrenal nodules. Kidneys and Ureters: No hydronephrosis. There is a small fat density lesion within the right kidney measuring up to 1.2 cm compatible with angiomyolipoma. A punctate nonobstructing stone is demonstrated within the right kidney. Stomach and Bowel: Stomach and small bowel loops are normal in caliber and wall thickness. The appendix is within normal limits without evidence of acute appendicitis. There are a few calcifications in the base of the appendix. There is colonic diverticulosis without acute diverticulitis. Mild segmental wall thickening in the sigmoid colon may reflect a mild colitis. Peritoneum: There is a small amount of free fluid within the pelvis. No free air. Ventral Wall: No hernia. Abdominal Nodes: No retroperitoneal or mesenteric adenopathy by size criteria. Vessels: Aorta and inferior vena cava are normal in size. PELVIS: Pelvic Organs: There is a large mass with multiple clustered internal calcifications demonstrated in the pelvis measuring up to 8.0 x 7.8 cm in transverse dimension and 7.8 cm in craniocaudal dimension. There is mild adjacent fat stranding. The mass is contiguous with the anterior aspect of the uterus. There is mild thickening of the endometrium which is indistinct in appearance. Bladder: Unremarkable. Pelvic Nodes: No enlarged lymph nodes. Miscellaneous: No inguinal hernias are seen. Bones: Visualized osseous structures demonstrate no suspicious focal lesions. IMPRESSION: 1. Colonic diverticulosis without acute diverticulitis. Mild segmental wall thickening in the sigmoid colon may reflect a mild colitis. 2. No evidence of appendicitis. 3. Large pelvic mass with internal calcifications and contiguous with the uterus demonstrated. The findings are suggestive of a large exophytic fibroid but is incompletely evaluated on the current study. Recommend initial further evaluation with a pelvic ultrasound. 4. Mild thickening of the endometrium. The finding is nonspecific and further evaluation is recommended with pelvic ultrasound. 5. Small amount of pelvic free fluid is nonspecific but likely reactive. Dictated by: Colt Metzger M.D. on 12/02/2021 at 23:16 Approved by: Colt Metzger M.D. on 12/02/2021 at 23:29
[2021-12-02 23:15] VITALS: PULSE 86; O2SAT 97
[2021-12-02 23:30] VITALS: PULSE 87; O2SAT 96
[2021-12-03] VITALS: PULSE 87; O2SAT 96
[2021-12-03 00:30] VITALS: PULSE 87; O2SAT 96
[2021-12-03 00:42] VITALS: PULSE 87; O2SAT 97
[2021-12-03 00:44] VITALS: BP 144/68
== END 2021-12-03 00:53 | disposition home or self-care (01) ==
PROVIDERS: Emergency Medicine; Emergency Provider Emergency Medicine; PCP Internal Medicine
DX: R19.00 Intra-abdominal and pelvic swelling, mass and lump, unspecified site (principal); K52.9 Noninfective gastroenteritis and colitis, unspecified
CPT/HCPCS: 36415; 74177; 80053; 81003; 81015; 83690; 85025; 87086; 96374; 96375; 99284; J1200; J2930; Q9967

== ENCOUNTER → 2021-12-03 16:31 | Outpatient (CLI) | payer MEDICARE, SELFPAY ==
--- NOTE | 2021-12-03 16:33 | DI.US.S_ITS ---
PROCEDURE: US PELVIC COMPLETE INDICATIONS: PELVIC MASS TECHNIQUE: Real-time scanning was performed of the pelvic organs, with image documentation. Additional endovaginal scanning was necessary due to incomplete visualization of the adnexal and endometrial structures by transabdominal scanning. COMPARISON: [facility], CT, CT ABDOMEN PELVIS W CON, 12/02/2021, 21:46. FINDINGS: Uterus: Uterus is diffusely heterogeneous with numerous calcifications. The numerous focal calcifications limit evaluation of the uterus secondary to posterior shadowing. In addition to the shadowing from uterine calcifications there is extensive bowel gas. The uterus is anteverted and measures 9 x 6.2 x 4.4 cm. The endometrium is obscured by the reported above calcifications. There is a small hyperechoic lesion measuring 0.5 cm near the right cervix, likely early calcification. Ovaries: The ovaries are not identified. Other: Trace free fluid in pelvic cul-de-sac. IMPRESSION: Extensive calcifications throughout the uterus limits evaluation of a probable fibroid. We strive to produce accurate, complete, and clear reports of imaging services. To assist us in improving patient care, this report was composed using standard report templates and voice recognition software. Therefore, it may contain abnormal punctuation, insertions and/or omissions. Occasional wrong-word or sound-alike substitutions may occur. Though we review the report and make efforts to correct it, we do recommend that the report be read carefully in proper context to recognize any text inaccuracies. Dictated by: Charlie Thompson M.D. on 12/03/2021 at 16:18 Approved by: Charlie Thompson M.D. on 12/03/2021 at 16:29
[2021-12-03 18:52] LABS: Cancer Antigen 125 5.5 U/mL (0-35)
== END ==
PROVIDERS: PCP Internal Medicine; Referring Provider Obstetrics & Gynecology; Visit Provider Obstetrics & Gynecology
DX: R19.00 Intra-abdominal and pelvic swelling, mass and lump, unspecified site (principal)
CPT/HCPCS: 36415; 76830; 76856; 86304

== ENCOUNTER → 2021-12-22 13:25 | Outpatient (CLI) | payer MEDICARE, SELFPAY ==
[2021-12-22 14:55] LABS: COVID19 -Nasal RAPID Negative (Negative)
== END ==
PROVIDERS: PCP Internal Medicine; Visit Provider Obstetrics & Gynecology
DX: Z01.812 Encounter for preprocedural laboratory examination (principal); Z20.822 Contact with and (suspected) exposure to COVID-19
CPT/HCPCS: 87635; C9803

== ENCOUNTER 2021-12-24 14:00 | Observation (INO) | payer MEDICARE, SELFPAY ==
[2021-12-16 14:06] VITALS: BMI 35.0
[2021-12-23] VITALS (25 sets, daily range): BP systolic 105–145; BP diastolic 39–89; PULSE 64–81; RESP 11–16; TEMP 36–37.2; O2SAT 92–99; BMI 35.2
--- NOTE | 2021-12-23 | PATH_ITS ---
[facility] Accession Number: [id number] . 01 Material submitted: . uterus - UTERUS, BILATERAL OVARIES ANDFALLOPIAN TUBES, FIBROID . 01 Clinical history: . PELVIC AND PERINEAL PAIN HYPERTROPHY OF UTERUS . 01 Diagnosis: Uterus, Bilateral Ovaries and Fallopian Tubes, Fibroid, Supracervical Open Hysterectomy with Bilateral Salpingo-oophorectomy (Weight 25 grams) and Myomectomy (Weight 297 grams): Endocervix with no significant histomorphologic abnormality. Inactive endometrium with features of cystic atrophy; negative for glandular hyperplasia, cytologic atypia, or malignancy. Myometrium with multiple intramural leiomyomas (up to 16 mm in greatest dimension). Uterine serosa with multiple subserosal leiomyomas (up to 16 mm in greatest dimension); negative for atypia or malignancy. Complete cross-sections of left fallopian tube; negative for atypia or malignancy. Left ovary with no significant histomorphologic abnormality. Complete cross-sections of right fallopian tube; negative for atypia or malignancy. Right ovary with no significant histomorphologic abnormality. Detached hyalinized and partially calcified leiomyoma with patchy degenerative features; negative for atypia or malignancy (8.5 x 7.7 x 5.8 cm). [facility] 12/29/2021 1803 Local . 01 Electronically signed: . Fozia Mckeon MD, Pathologist NPI- [id number] . 01 Gross description: . The specimen is received in formalin, labeled with the patient's name and uterus, bilateral ovaries and tubes, fibroid, and consists of an intact uterus (25 g, 5.2 cm SI, 4.4 cm ML, 2.2 cm AP) with attached left fallopian tube (5.0 x 0.4 cm), attached left ovary (2 g, 1.7 x 1.2 x 0.6 cm), attached right fallopian tube (4.2 x 0.7 cm), attached right ovary (1 g, 1.7 x 1.2 x 0.7 cm), and detached smooth, firm, hemorrhagic structure consistent with fibroid (297 g, 8.5 x 7.7 x 5.8 cm). No cervix is included. The uterine serosa is black and smooth with an area of hemorrhage measuring 1.5 cm in greatest dimension. Also identified is a raised, pedunculated nodular structure measuring 1.6 cm in greatest dimension. The posterior cervical margin is inked black while the anterior cervical margin is inked blue. The fragment of endocervical canal has black herringbone mucosa and measures 1.2 cm in length. The endometrial cavity measures 2.2 cm from cornu to cornu and 3.0 cm in length with a hemorrhagic cavity located superiorly and black velvety endometrium that averages 0.1 cm thick. The myometrium is black and firm and measures 1.0 cm in maximum thickness with multiple intramural and subserosal white, well-circumscribed, whorled nodules measuring up to 1.6 cm in greatest dimension. No additional lesions, hemorrhage, or necrosis are identified. The left fallopian tube has black, smooth serosa with no cystic structures identified. Sectioning reveals an unremarkable stellate lumen. The left ovary is black and cerebriform with no cystic structures identified. Sectioning reveals a black, unremarkable cut surface. The right fallopian tube has congested, smooth serosa with no cystic structures identified. Sectioning reveals an unremarkable stellate lumen. The right ovary is black and cerebriform and no cystic structure is identified. Sectioning reveals a black, unremarkable cut surface. The presumed margin of the large, firm additional mass is inked green. Sectioning reveals a heterogeneous harrington-black to white cut surface with significant diffuse calcifications occupying approximately 40% of the cut surface. The center of the nodule is red and hemorrhagic, possibly consistent with unfixed tissue. Hand Sample Maker sections are submitted as follows: A1: Anterior and posterior cervical margins. A2: Anterior full-thickness section to include intramural nodules. A3: Posterior full-thickness section to include intramural nodules. A4: Hand Sample Maker nodules and hemorrhagic cavity. A5: Left fallopian tube to include entire fimbriae and cross sections. A6: Hand Sample Maker left ovary. A7: Right fallopian tube to include entire fimbriae and cross sections. A8: Hand Sample Maker right ovary. A9-A14: Hand Sample Maker large calcified fibroid following decalcification. ([id number]) /FRR 12/25/2021 [facility]3 Local . 01 Pathologist provided ICD-10: R10.2, N85.2, D25.9 . 01 CPT . 290788 Performed at: 01 [facility] [address] [place] [address] [address] [facility] [place] [place], [place] [id number] MD Colt Rocha MD Phone: [phone]
--- NOTE | 2021-12-23 07:33 | PM.PREOP ---
Pre-operative Note COVID-19 COVID-19 status: Negative Result date/Date tested (Pos, Neg/Pending): 12/22/21 Criteria for continued procedure: Non-surgical alternatives not available or appropriate per current SOC Interval Note History & Physical reviewed/Exam performed by Physician: Yes Changes to H&P: No H&P completed within 30 days and has changed as indicated here:: 12/15/21
[2021-12-23] MEDS: LACTATED RINGERS 1,000 ML 100 ML IV ×2 (07:57→15:17)
[2021-12-23 08:04] LABS: Add Manual Diff / Slide Review NO; Basophils Absolute Auto 100 /uL (0-100); Basophils Percent Auto 1.1 % (0-2); Eosinophils Absolute Auto 200 /uL (0-450); Eosinophils Percent Auto 3.4 % (2-4); Hematocrit 40.1 % (36-46); Hemoglobin 13.4 g/dL (12.0-16.0); Lymphocytes Absolute Auto 1600 /uL (1100-4500); Lymphocytes Percent Auto 23.5 % (25-40); Mean Corpuscular HGB Conc 33.4 % (30-36); Mean Corpuscular Hemoglobin 29.2 PG (26-34); Mean Corpuscular Volume 87.4 fL (80-100); Monocytes Absolute Auto 500 /uL (0-900); Monocytes Percent Auto 6.9 % (3-14); Neutrophils Absolute Auto 4400 /uL (1500-7000); Neutrophils Percent Auto 65.1 % (50-75); Platelet Count 275 X10^3/uL (150-400); Red Blood Cell Count 4.59 X10^6/uL (4.0-5.2); Red Cell Distribution Width 14.3 % (11.6-14.8); White Blood Cell Count 6.8 X10^3/uL (4.5-11.0)
[2021-12-23] MEDS: CEFAZOLIN 2 GM/100 ML PREMIX 100 ML IV (08:10)
[2021-12-23 08:16] LABS: BUN Creatinine Ratio 15.3 (6-22); Blood Urea Nitrogen 11 mg/dL (7-17); Calcium 8.8 mg/dL (8.4-10.2); Carbon Dioxide 25 mmol/L (22-32); Chloride 104 mmol/L (98-107); Estimated Glomerular Filt Rate > 60 mL/min (>60); Glucose 113 mg/dL (80-110); HEMOLYSIS 31 (0-50); Potassium 3.9 mmol/L (3.4-5.1); Sodium 138 mmol/L (137-145)
--- NOTE | 2021-12-23 09:10 | SUR.OPER ---
Lithotomy on padded OR bed. [place] Pad Positioner under torso. Head on pillow, arms padded and tucked at sides. Legs secured in padded yellow fins stirrups.
[2021-12-23] MEDS: ACETAMINOPHEN IV 1,000 MG/100 ML VIAL 400 MG IV (09:20)
[2021-12-23] MEDS: BUPIVACAINE 0.5% W/ EPI (PF) 30 ML VIAL INJ (09:37)
[2021-12-23] MEDS: fentaNYL 100 MCG/2 ML INJ IV (10:33)
--- NOTE | 2021-12-23 10:34 | PM.GYNOP.1 ---
Operative Date/Time/Diagnoses Date of procedure: 12/23/21 Time of procedure: 10:34 Pre-op diagnosis: Uterine fibroids Pelvic pain Post-op diagnosis: same Procedure & Clinicians Procedure: Procedures Operation Date: 12/23/21 07:45 Actual Procedure Side Surgeon p oPEN Supracervical Hysterectomy w. bilateral salping-oophorectomy, poss open Lizette Mcconnell MD Indications: Uterine fibroids Pelvic pain Surgeon: Lizette Mcconnell Imaging Science Professor: Tom Johnson Anesthesia Type: General and Local Operative Notes Findings: 4 week size fibroid uterus 12 cm infarcted fibroid coming off the fundus of the uterus and attached to the bladder and bowel Normal tubes and ovaries Normal liver and gallbladder Closure Type: primary Specimen(s): left tube & ovary, right tube & ovary and uterus Applied: catheter (Latex-free, to continuous drainage) Estimated blood loss (mL): 75 Blood products transfused: none Procedure in detail: The patient was taken to the operating room where she was placed in the dorsal supine position. After adequate general endotracheal anesthesia was achieved, she was placed in the dorsal lithotomy position, and prepped and draped in the usual sterile fashion. A time-out was performed. A bivalve speculum was placed into the vagina and the anterior lip of the cervix was grasped with a single-tooth tenaculum. The cervical os was sequentially dilated until the Zumi uterine manipulator could pass easily into the endometrial cavity. The single-tooth tenaculum was removed from the anterior lip of the cervix. The bivalve speculum was removed from the vagina. Attention was then turned to the abdomen where 6 cc of 0.5% Marcaine with epinephrine were injected in the umbilical fold. A 5 mm incision was made. The Veress needle was placed into the peritoneal cavity, and its placement confirmed by aspiration and drop test. The abdominal cavity was insufflated with 4 L of CO2. Veress needle was removed, and a 5 mm trocar was placed without difficulty. A second incision was made 4 cm lateral to the umbilicus after 6 cc of 0.5% Marcaine with epinephrine were injected. A second 5 mm trocar was placed under direct visualization. The probe was used to identify the pelvis. There was found to be a large mass that appeared to be an infarcted fibroid stuck to the bladder and bowel in the pelvis. Considerable inflammation was visualized. A decision was made to proceed with an open procedure. The instruments were removed from the abdomen. The CO2 was allowed to escape. A Pfannenstiel skin incision was made 3 finger breaths above the pubic symphysis and carried through to the underlying layer of fascia. The fascia was nicked in the midline and the incision extended bilaterally with the Ibarra scissors. Superior aspect of the fascial incision was grasped with the [place]ona clamps, elevated, and the underlying rectus muscles dissected off sharply and bluntly. The inferior aspect of the incision was grasped with the [place]ona clamps, elevated, and underlying rectus muscles dissected off sharply and bluntly. The rectus muscles were in the midline. Peritoneum was identified and grasped between 2 hemostats. The peritoneum was entered sharply with the Metzenbaum scissors and the incision extended superiorly and inferiorly with good visualization of the bladder. The O'Roger O'Orozco bowel packed away with moist lap sponges. There was found to be a pedunculated, infarcted fibroid stuck to the bladder and bowel. This was dissected off sharply using Metzenbaum scissors and bluntly. The fibroid was approximately 12 cm. It was attached to the uterus at the fundus by a small twisted pedicle. The cautery was used to remove the fibroid. The fibroid was handed off for specimen. At this point the Zumi uterine manipulator was found to be perforating the fundus of the uterus. The Zumi was pulled back vaginally. The uterus was grasped with a 4 tooth tenaculum. The round ligament on the right side was doubly clamped, transected, and suture ligated with 0 Vicryl. This was tagged with a hemostat. The infundibulopelvic ligament on the right side was doubly clamped, transected, free tied with 0 Vicryl and then suture ligated with 0 Vicryl. Hemostasis was achieved. The broad ligament was entereed sharply with the Metzenbaum scissors and the bladder flap was created sharply with the scissors. All of this and was repeated on the patient's left side. Hemostasis was achieved. Using a moistened sponge stick, the bladder was taken down off of the lower uterine segment and cervix. Using the Bovie, the uterus was amputated from the cervix. The endocervical canal was cauterized. The cervix was closed with 4 simple interrupted sutures with 0 Vicryl. Hemostasis was achieved. The pelvis was copiously irrigated with warm normal saline. There was no bleeding noted. The tagged sutures were cut. The O'Roger O'Orozco retractor was removed from the incision. The lap sponges were removed from the abdomen. The peritoneum was closed with 2 0 Vicryl in a running fashion. The fascia was closed with 0 Vicryl in a running fashion. The subcutaneous layer was copiously irrigated with warm normal saline. Six simple interrupted sutures with 3-0 Vicryl were placed to reapproximate. The skin was closed with 4-0 Monocryl in a subcuticular fashion. The 2 laparoscopy incisions were closed with 4-0 Monocryl in a subcuticular fashion. Steri-Strips were placed over all of the incisions. The laparoscopy incisions were covered with Allevyn dressings. The Pfannenstiel incision was covered with an Aquacel dressing. Sponge, lap, and instrument counts were correct x2. The patient tolerated the procedure well, and was taken to PACU in stable condition. Complications: none Post-operative Condition: stable Disposition: PACU Plan for aftercare: To Acute Care after Recovery
[2021-12-23] MEDS: HYDROMORPHONE 2 MG INJ IV ×2 (10:39→10:55)
[2021-12-23] MEDS: OXYCODONE IR 5 MG TABLET PO ×3 (11:02→18:59)
[2021-12-23] MEDS: ONDANSETRON 4 MG/2 ML INJ IV ×2 (11:02→19:47)
[2021-12-23] MEDS: hydrOXYzine 50 MG/ML INJ 25 MG IM (11:02)
[2021-12-23] MEDS: ACETAMINOPHEN 325 MG TABLET 650 MG PO ×2 (11:51→18:58)
[2021-12-23] MEDS: HYDROMORPHONE 1 MG INJ IV ×2 (12:51→16:00)
--- NOTE | 2021-12-23 21:02 | PC.NURSE ---
Pt post hysterectomy, 10 hours. Pt coping well with pain. Medicated at 1900 with Tylenol and Oxycodone. VSS,afebrile. Pt demonstrated correct use of Incentive spirometry. Discussed importance of occasional deep breathe/cough. Pt demo returned. Assisted pt to reposition and settled for sleep. Abd dressings within normal parameters. Will medicated for pain when due via round the clock dosing for first night post Abd.Hyst. Pt's questions answered after review of our shift plan of care/activity.
[2021-12-23] MEDS: DOCUSATE 100 MG CAPSULE 200 MG PO (21:18)
[2021-12-23] MEDS: ANASTROZOLE 1 MG TABLET PO (21:18)
--- NOTE | 2021-12-23 21:33 | PC.NURSE ---
Patient says that she takes her Anastrozol every evening. Todays dose given at approx 2115. Tomorrows administration time changed to 2100.
[2021-12-23] MEDS: OXYCODONE IR 10 MG TABLET PO (22:46)
[2021-12-24] MEDS: ACETAMINOPHEN 325 MG TABLET 650 MG PO ×4 (00:15→21:11)
[2021-12-24 00:30] VITALS: BP 129/69; PULSE 75; RESP 16; TEMP 36.8; O2SAT 94
[2021-12-24 05:35] VITALS: BP 124/69; PULSE 77; RESP 16; TEMP 37; O2SAT 96
[2021-12-24] MEDS: OXYCODONE IR 10 MG TABLET PO ×4 (05:37→19:24)
[2021-12-24 06:25] LABS: Add Manual Diff / Slide Review NO; Basophils Absolute Auto 0 /uL (0-100); Basophils Percent Auto 0.4 % (0-2); Eosinophils Absolute Auto 0 /uL (0-450); Hematocrit 34.7 % (36-46); Lymphocytes Absolute Auto 1000 /uL (1100-4500); Lymphocytes Percent Auto 9.8 % (25-40); Mean Corpuscular HGB Conc 34.5 % (30-36); Mean Corpuscular Hemoglobin 30.1 PG (26-34); Mean Corpuscular Volume 87.2 fL (80-100); Monocytes Absolute Auto 700 /uL (0-900); Monocytes Percent Auto 6.6 % (3-14); Neutrophils Absolute Auto 8700 /uL (1500-7000); Neutrophils Percent Auto 83.2 % (50-75); Platelet Count 264 X10^3/uL (150-400); Red Blood Cell Count 3.98 X10^6/uL (4.0-5.2); Red Cell Distribution Width 14.2 % (11.6-14.8); White Blood Cell Count 10.4 X10^3/uL (4.5-11.0)
[2021-12-24 06:39] LABS: BUN Creatinine Ratio 12.3 (6-22); Blood Urea Nitrogen 8 mg/dL (7-17); Calcium 8.5 mg/dL (8.4-10.2); Carbon Dioxide 26 mmol/L (22-32); Chloride 102 mmol/L (98-107); Estimated Glomerular Filt Rate > 60 mL/min (>60); Glucose 125 mg/dL (80-110); HEMOLYSIS < 15 (0-50); Potassium 4.2 mmol/L (3.4-5.1); Sodium 134 mmol/L (137-145)
--- NOTE | 2021-12-24 07:29 | PC.NURSE ---
IV saline locked. Burns cath removed at 0630. Pericare given, Pad/panties on pt. Instructed pt on getting out of bed, ambulation. Assisted pt to sit at side of bed. No weakness or dizziness reported. Pt walked to chair. Settled with feet up on stool. Nons[place] socks in place. Pt ordered breakfast and nurse call light and pt belongings are within reach. Repeated instructions for pt to call nurse for assistance when wanting to get up or to go to bathroom. New gown on pt, new linens on bed. Incentive spirometer used X 5.
--- NOTE | 2021-12-24 07:43 | PC.NURSE ---
SBAR report given to YANET Joya. Pt stable and sitting in chair.
[2021-12-24] MEDS: AMLODIPINE 5 MG TABLET PO (09:19)
[2021-12-24] MEDS: DOCUSATE 100 MG CAPSULE 200 MG PO ×2 (09:19→21:10)
--- NOTE | 2021-12-24 09:47 | PC.NURSE ---
checked in on pt who is sitting up in chair/ reports that she is feeling painful-it's time for pain meds@0930-gave OXY 10mg/amlodipine AM dose and Maru-vitals stable 128/72-Temp 98.6/ Resp 18/ Bandages dry with small amount of blood circled-low transverse bandage dry and intact no drainage-Dr Mcconnell rounded on pt @0810 assessed and plan to cont post surgery protocols
[2021-12-24 13:46] VITALS: BP 134/72; PULSE 76; RESP 17; TEMP 37; O2SAT 96
--- NOTE | 2021-12-24 13:58 | PC.NURSE ---
pt voided 50 ml only-bladder scanned @[address] Mcconnell-able to scan [id number] to get pt up to BR in a few hrs
[2021-12-24 17:56] VITALS: BP 136/70; PULSE 80; RESP 18; TEMP 37; O2SAT 94
--- NOTE | 2021-12-24 17:58 | PC.NURSE ---
Assisted patient from chair to bed. Per Dr. Mcconnell, no need to continue monitoring urine output as output is sufficient. Patient states would like pain medicine as scheduled, would like to be woken up at night for medication. Laproscopic dressing has small spots of drainage, lower abdominal dressing clean, dry and intact.
--- NOTE | 2021-12-24 18:21 | P.PN_ITS ---
Subjective Subjective Date Patient Seen: 12/24/21 Time Patient Seen: 07:50 Interval history: Patient is a 76-year-old postop day # 1 status post open supracervical h ysterectomy with bilateral salpingo-oophorectomy. Burns catheter out. She has not been able to void as of yet. Pain is much more controlled this morning. No nausea or vomiting. Exam Vital Signs (past 8 hours): - 12/24/21 13:46 12/24/21 17:56 Temperature 98.6 F 98.6 F Pulse Rate 76 80 Respiratory Rate 17 18 Blood Pressure 134/72 136/70 Pulse Oximetry 96 94 Oxygen Delivery Method Nasal Cannula Oxygen Flow Rate 0 Narrative Exam Narrative: Generally: Patient is sitting up in a chair, no acute distress Lungs: Clear to auscultation bilaterally Cardiovascular: Regular rate and rhythm Abdomen: Soft and flat. Incisions: Clean dry and intact with dressings. Extremities: Negative Homans, trace edema Objective Labs Result Diagrams: 12/24/21 06:10 12/24/21 06:10 Labs: Laboratory Results - last 24 hr 12/24/21 12/24/21 06:10 06:10 WBC 10.4 D RBC 3.98 L Hgb 12.0 Hct 34.7 L MCV 87.2 MCH 30.1 MCHC 34.5 RDW 14.2 Plt Count 264 Neut % (Auto) 83.2 H Lymph % (Auto) 9.8 L [place] % (Auto) 6.6 Eos % (Auto) 0.0 L Baso % (Auto) 0.4 Neut # (Auto) 8700 H Lymph # (Auto) 1000 L [place] # (Auto) 700 Eos # (Auto) 0 Baso # (Auto) 0 Sodium 134 L Potassium 4.2 Chloride 102 Carbon Dioxide 26 BUN 8 Creatinine 0.65 Estimated GFR > 60 BUN/Creatinine Ratio 12.3 Glucose 125 H Calcium 8.5 PFSH Medical History (Updated 12/23/21 @ 07:15 by Bismark Stanford RN) Abnormal CXR (chest x-ray) (1991) Asthma (1979) Breast cancer, left breast (1991) Breast cancer, right breast (1991) Clavicle fracture (1974) Easy bruisability HTN (hypertension) Kidney stones Mitral valve prolapse (1973) MRSA infection (2013) PONV (postoperative nausea and vomiting) Positive PPD (~1950) Recurrent sinusitis (1972) Sinus drainage Surgical History Anesthesia complication History of breast augmentation (2013) History of nasal polypectomy (~1975) History of sinus surgery (~1979) History of total mastectomy (1991) Hx of bilateral cataract extraction S/P right mastectomy (04/25/19) Status post left breast reconstruction (1992) Status post reduction mammoplasty (1992) Family History Grandmother Diabetes mellitus Grandfather Family history of diabetes mellitus (DM) Diabetes mellitus Parkinson's disease Grandmother Family history of diabetes mellitus (DM) Heart disease Stroke Father MVA (motor vehicle accident) Tuberculosis Mother MVA (motor vehicle accident) Grandfather No problems noted. Family/Other Family history of diabetes mellitus (DM) Social History household members: spouse Smoking Status: Never smoker alcohol intake: never Assessment & Plan Post-op Postoperative Procedures: Procedures Operation Date: 12/23/21 07:45 Actual Procedure Side Surgeon p oPEN Supracervical Hysterectomy w. bilateral salping-oophorectomy Lizette Mcconnell MD Postoperative day: 1 Postoperative status: doing well Postoperative plan: routine post-op care Postoperative plan narrative: Remove Burns catheter, watch urine output Time Spent With Patient Time with patient: less than 15 minutes
[2021-12-24 21:00] VITALS: BP 144/80; PULSE 91; RESP 16; TEMP 36.6; O2SAT 97
[2021-12-24] MEDS: ANASTROZOLE 1 MG TABLET PO (21:10)
[2021-12-25] MEDS: ONDANSETRON 4 MG ODT SL (00:15)
[2021-12-25] MEDS: OXYCODONE IR 10 MG TABLET PO ×3 (00:15→09:24)
[2021-12-25] MEDS: ACETAMINOPHEN 325 MG TABLET 650 MG PO ×2 (03:56→11:39)
[2021-12-25 05:31] VITALS: BP 106/63; PULSE 83; RESP 17; TEMP 36.6; O2SAT 95
[2021-12-25 07:30] VITALS: BP 113/63; PULSE 82; RESP 17; TEMP 37.3; O2SAT 97
[2021-12-25] MEDS: LOPERAMIDE 2 MG CAPSULE PO (08:17)
[2021-12-25] MEDS: AMLODIPINE 5 MG TABLET PO (09:22)
--- NOTE | 2021-12-25 12:32 | PM.DS.1 ---
History of Present Illness History of Present Illness Date Patient Seen: 12/25/21 Time Patient Seen: 10:05 Chief complaint: Lap Supracervical Hysterectomy Ajit Salping-Oophere Narrative: Patient is a 76-year-old postop day # 2 status post an open supracervical hysterectomy and bilateral salpingo-oophorectomy. She had a few issues on postop day # 1 emptying her bladder, these have resolved. Pain is well controlled. No nausea and vomiting. She has tolerated a diet. She is passing gas. She has ambulated without assistance. Discharge Providers Provider Discharge Date: 12/25/21 Primary care physician: Wan Dennis MD Discharge provider: Lizette Mcconnell MD Summary Hospital Course Discharge Diagnosis: Infarcted, pedunculated fibroid Normal tubes and ovaries Pelvic pain Hospital Course: Patient is a 76-year-old who presented on December 23, 2021 for a scheduled laparoscopic supracervical hysterectomy. This was converted to open due to a large fibroid that was stuck to the bowel and bladder. She underwent an open supracervical hysterectomy with bilateral salpingo-oophorectomy without complication. Initially she had some pain management issues which were resolved by postop day # 1. She also had some difficulties emptying her bladder on postop day # 1. These have resolved. She is tolerating a diet. She is ambulating without assistance. No nausea or vomiting. She has passed flatus. Patient is discharged home on postop day # 2. Status at Discharge Cognitive/behavioral status at discharge: oriented Functional status at discharge: independent ambulation Overall status at discharge: patient is progressing back to baseline Time Spent with Patient Time spent: Less than 30 minutes Exam Vital Signs (past 8 hours): - 12/25/21 05:31 Temperature 97.9 F Pulse Rate 83 Respiratory Rate 17 Blood Pressure 106/63 Pulse Oximetry 95 Oxygen Delivery Method Nasal Cannula Oxygen Flow Rate 0 Narrative Exam Narrative: Generally: Patient is sitting up in chair, no acute distress Lungs: Clear to auscultation bilaterally Cardiovascular: Regular rate and rhythm Abdomen: Soft, good bowel sounds Incisions: Clean dry and intact with bandages Extremities: Trace edema, negative Homans Objective Labs Result Diagrams: 12/24/21 06:10 12/24/21 06:10 [facility] Medical History (Updated 12/23/21 @ 07:15 by Bismark Stanford RN) Abnormal CXR (chest x-ray) (1991) Asthma (1979) Breast cancer, left breast (1991) Breast cancer, right breast (1991) Clavicle fracture (1974) Easy bruisability HTN (hypertension) Kidney stones Mitral valve prolapse (1973) MRSA infection (2013) PONV (postoperative nausea and vomiting) Positive PPD (~1950) Recurrent sinusitis (1972) Sinus drainage Surgical History Anesthesia complication History of breast augmentation (2013) History of nasal polypectomy (~1975) History of sinus surgery (~1979) History of total mastectomy (1991) Hx of bilateral cataract extraction S/P right mastectomy (04/25/19) Status post left breast reconstruction (1992) Status post reduction mammoplasty (1992) Family History Grandmother Diabetes mellitus Grandfather Family history of diabetes mellitus (DM) Diabetes mellitus Parkinson's disease Grandmother Family history of diabetes mellitus (DM) Heart disease Stroke Father MVA (motor vehicle accident) Tuberculosis Mother MVA (motor vehicle accident) Grandfather No problems noted. Family/Other Family history of diabetes mellitus (DM) Social History household members: spouse Smoking Status: Never smoker alcohol intake: never Discharge Assessment & Plan Assessment and Plan Assessment: Postop day # 2 status post open supracervical hysterectomy with bilateral salpingo-oophorectomy due to an infarcted, pedunculated fibroid Patient doing very Plan of Treatment: Discharge to home Follow-up in 1 week for Aquacel dressing removal Discharge Plan Discharge Plan Patient Disposition: Home Provider Discharge Comment: Call with fever, chills, redness or drainage around the incisions, or bleeding vaginally more than spotting Tylenol 650 mg every 6 hours as needed Discharge orders & Medications Discharge Orders: Discharge (Order); Ordered 12/25/21 Ordered By: Lizette Mcconnell Prescriptions: New oxycodone 5 mg tablet 5 mg PO Q4H PRN (Reason: pain) Qty: 30 0RF Rx Instructions: 1-2 tabs every 4 hours as needed Continued felodipine 5 mg tablet extended release 24 hr 5 mg PO QDAY Qty: 90 3RF calcium carbonate-vitamin D3 500 mg(1,250mg) -125 unit tablet 1 tab PO DAILY multivitamin Tablet 1 tab PO DAILY anastrozole 1 mg tablet 1 mg PO DAILY loperamide [Imodium A-D] 2 mg capsule 2 mg PO DAILY PRN (Reason: Diarrhea) Rx Instructions: PRN bisacodyl 5 mg tablet 5 mg PO ONCE PRN (Reason: Constipation) Rx Instructions: PRN prochlorperazine maleate 10 mg tablet 10 mg PO Q6-8H PRN (Reason: Nausea, vomiting) ondansetron HCl [Zofran] 8 mg tablet 8 mg PO Q8H acetaminophen 500 mg capsule 500 mg PO Q6H PRN (Reason: Pain) fluticasone propionate 50 mcg/actuation spray,suspension 2 spray Intranasal HS PRN (Reason: Congestion) Rx Instructions: Uses during seasonal allergies. Discontinued hydrocodone-acetaminophen 5-325 mg tablet 1 tab PO Q4-6H PRN (Reason: pain) Qty: 10 0RF Follow up/Referrals: Lizette Mcconnell MD [Physician] - 1 Week (My office will call to schedule 1 week Aquacel dressing removal) Wan Dennis MD [Primary Care Provider] - Diet/Activity/Treatments Diet: Regular Activity: No heavy lifting. Skin/Wound/Dressing Care Report to your healthcare provider any signs of infection, such as:: chills, fever, increased pain, unusual drainage and unusual redness Dressing: Remove outer pink dressings with attached gauze tomorrow morning after Leave lower dressing in place until office visit next week Visit Report/Discharge Packet Instructions: DI for Hysterectomy, DI for Laparoscopy, DI for Prescription Opioid Use Stand Alone Forms: Congestive Heart Failure, Surgery Discharge Discharge Data Primary Care Provider: Wan Dennis Attending Provider: Lizette Mcconnell
== END 2021-12-25 11:40 | disposition home or self-care (01) ==
LOC: OR 12-27 08:55 → LABOR 12-27 08:56
PROVIDERS: Admitting Provider Obstetrics & Gynecology; PCP Internal Medicine; Referring Provider Obstetrics & Gynecology; Visit Provider Obstetrics & Gynecology
PROC: 0UT94ZL Resection of Uterus, Supracervical, Percutaneous Endoscopic Approach (ICD-10-PCS; CPT 58180; principal; 2021-12-23 07:45)
DX: D25.1 Intramural leiomyoma of uterus (principal)
CPT/HCPCS: 58180; 36415; 80048; 85025; G0378; J0131; J0330; J0690; J1100; J1170; J2250; J2405; J2704; J2765; J3010; J3410

== ENCOUNTER → 2023-01-27 09:52 | Outpatient (CLI) | payer MEDICARE, SELFPAY ==
[2023-01-27 10:42] LABS: Add Manual Diff / Slide Review NO; Basophils Absolute Auto 200 /uL (0-100); Basophils Percent Auto 3.3 % (0-2); Eosinophils Absolute Auto 200 /uL (0-450); Eosinophils Percent Auto 3.4 % (2-4); Hematocrit 42.3 % (36-46); Hemoglobin 14.1 g/dL (12.0-16.0); Lymphocytes Absolute Auto 1700 /uL (1100-4500); Lymphocytes Percent Auto 28.7 % (25-40); Mean Corpuscular HGB Conc 33.4 % (30-36); Mean Corpuscular Hemoglobin 29.6 PG (26-34); Mean Corpuscular Volume 88.6 fL (80-100); Monocytes Absolute Auto 400 /uL (0-900); Monocytes Percent Auto 6.4 % (3-14); Neutrophils Absolute Auto 3500 /uL (1500-7000); Neutrophils Percent Auto 58.2 % (50-75); Platelet Count 271 X10^3/uL (150-400); Red Blood Cell Count 4.77 X10^6/uL (4.0-5.2); Red Cell Distribution Width 14.4 % (11.6-14.8); White Blood Cell Count 6.1 X10^3/uL (4.5-11.0)
[2023-01-27 11:17] LABS: Alanine Aminotransferase 17 IU/L (<35); Albumin 4.1 g/dL (3.5-5.0); Albumin Globulin Ratio 1.2 (1.0-2.8); Alkaline Phosphatase 76 U/L (38-126); Aspartate Aminotransferase 27 IU/L (14-36); BUN Creatinine Ratio 21.3 (6-22); Bilirubin Total 0.5 mg/dL (0.2-1.3); Blood Urea Nitrogen 17 mg/dL (7-17); Calcium 9.3 mg/dL (8.4-10.2); Carbon Dioxide 26 mmol/L (22-32); Cholesterol 211 mg/dL (140-199); Estimated Glomerular Filt Rate > 60 mL/min (>60); Globulin 3.4 g/dL (1.7-4.1); Glucose 102 mg/dL (80-110); HDL Cholesterol 62 mg/dL (40-60); LDL Cholesterol Calculated 130 mg/dL (<100); Potassium 4.3 mmol/L (3.4-5.1); Sodium 137 mmol/L (137-145); Total Protein 7.5 g/dL (6.3-8.2); Triglycerides 96 mg/dL (35-150)
[2023-01-27 11:20] LABS: HEMOLYSIS 51 (0-50)
[2023-01-27 11:21] LABS: Chloride 103 mmol/L (98-107)
== END ==
PROVIDERS: PCP Internal Medicine; Referring Provider Internal Medicine; Visit Provider Internal Medicine
DX: I10 Essential (primary) hypertension (principal); J45.30 Mild persistent asthma, uncomplicated; Z13.6 Encounter for screening for cardiovascular disorders; Z13.220 Encounter for screening for lipoid disorders
CPT/HCPCS: 36415; 80053; 80061; 85025

== ENCOUNTER → 2023-06-29 10:15 | Outpatient (CLI) | payer MEDICARE, SELFPAY | PROVIDERS: PCP Internal Medicine; Visit Provider Internal Medicine | DX: R30.0 Dysuria (principal) | CPT/HCPCS: 87077; 87086; 87186 ==

== ENCOUNTER → 2023-08-21 10:53 | Outpatient (CLI) | payer MEDICARE, SELFPAY ==
[2023-08-21 11:52] LABS: Appearance Urine UA SL CLOUDY; Bilirubin Urine UA NEGATIVE (NEGATIVE); Color Urine UA YELLOW; Glucose Urine UA NEGATIVE (Negative); Ketones Urine UA NEGATIVE (NEGATIVE); Leukocyte Esterase Urine UA 2+ (NEGATIVE); Nitrite Urine UA NEGATIVE (Negative); Occult Blood Urine UA 1+ (Negative); Protein Urine UA 1+ (Negative); Urobilinogen Urine UA 0.2 E.U./dL (0.2)
[2023-08-21 11:53] LABS: pH Urine UA 5.5 (4.5-8.0)
[2023-08-21 12:02] LABS: Bacteria Urine Few (2-10); Culture Indicated Urine Specimen Cultured; RBC Urine 1-5/HPF (0-5/HPF); Squamous Epithelial Cell Urine 1-5 /HPF (0-5/HPF); Urine Volume 10mL (spun); WBC Urine 30-100/HPF (0-5/HPF)
== END ==
LOC: LAB 10:54
PROVIDERS: PCP Internal Medicine; Referring Provider Internal Medicine; Visit Provider Internal Medicine
DX: R30.0 Dysuria (principal)
CPT/HCPCS: 81001; 87077; 87086

== ENCOUNTER → 2023-09-07 14:42 | Outpatient (CLI) | payer MEDICARE, SELFPAY ==
[2023-09-07 15:32] LABS: Influenza A - CEPHEID Flu A NEGATIVE (NEGATIVE); Influenza B - CEPHEID Flu B NEGATIVE (NEGATIVE); Respiratory Syncytial Virus Negative (Negative)
[2023-09-07 15:42] LABS: COVID-19 CEPHEID 4-PLEX PCR POSITIVE (Negative)
== END ==
PROVIDERS: PCP Internal Medicine; Visit Provider Nurse Practitioner Family
DX: R05.1 Acute cough (principal)
CPT/HCPCS: 0241U

== ENCOUNTER 2023-12-14 10:12 | Day surgery (SDC) | payer MEDICARE, SELFPAY ==
--- NOTE | 2023-12-14 | PATH_ITS ---
[facility] Accession Number: [id number] No. of containers..01 Tissue . 01 Material submitted: . colon - DESCENDING COLON POLYP . 01 Diagnosis: DESCENDING COLON POLYP: Hyperplastic polyp. [facility] 12/19/2023 1346 Local . 01 Electronically signed: . Colt Rocha MD, Pathologist NPI- [id number] . 01 Gross description: . Received in formalin with two patient identifiers and descending colon polyp, is a single black and brown soft tissue fragment 0.5 cm in greatest dimension. Submitted in cassette A1. ([id number]) /[facility] 12/19/20231345 Local . 01 Pathologist provided ICD-10: K63.5 . 01 CPT . 152780 Specimen Comment: A courtesy copy of this report has been sent to [phone] Performed at: [address] [facility] [id number] MD Colt Rocha MD Phone: [phone]
[2023-12-14 11:02] VITALS: BP 144/84; PULSE 85; RESP 16; TEMP 36.6; O2SAT 97
--- NOTE | 2023-12-14 11:04 | P.HP_ITS ---
History of Present Illness History of Present Illness Date Patient Seen: 12/14/23 Time Patient Seen: 11:04 Chief complaint: Colonoscopy Narrative: An is a 78-year-old woman here for colonoscopy. Her last 1 was approximately 10 years ago. She believes a polyp was removed but she was told it was ?crushed? as it was removed and was never analyzed by pathology. [facility] Medical History PONV (postoperative nausea and vomiting) Easy bruisability Sinus drainage HTN (hypertension) Invasive ductal carcinoma of breast Breast cancer, left breast (2019) Asthma (1979) Breast cancer, right breast (2019) Abnormal CXR (chest x-ray) (2019) Clavicle fracture (1974) Positive PPD (~1949) MRSA infection (2013) Recurrent sinusitis (1972) Kidney stones Mitral valve prolapse (1973) Surgical History Hx of bilateral cataract extraction S/P right mastectomy (04/25/19) Anesthesia complication History of breast augmentation (2013) History of sinus surgery (~1979) History of nasal polypectomy (~1975) Status post left breast reconstruction (1992) Status post reduction mammoplasty (1992) History of total mastectomy (1991) Family History Grandmother Diabetes mellitus Grandfather Family history of diabetes mellitus (DM) Diabetes mellitus Parkinson's disease Grandmother Family history of diabetes mellitus (DM) Heart disease Stroke Father MVA (motor vehicle accident) Tuberculosis Mother MVA (motor vehicle accident) Grandfather No problems noted. Family/Other Family history of diabetes mellitus (DM) Social History household members: spouse Smoking Status: Never smoker alcohol intake: never Meds Home Medications and Allergies Home Medications Medication Instructions Recorded Confirmed Type fluticasone propionate 50 2 spray intranasal HS PRN 01/24/19 09/07/23 History mcg/actuation nasal Congestion spray,suspension (Aller-Iain) acetaminophen 500 mg capsule 1,000 mg PO Q6H PRN Pain 02/21/20 12/14/23 History anastrozole 1 mg tablet 1 mg PO DAILY 02/21/20 12/14/23 History bisacodyl 5 mg tablet 5 mg PO ONCE PRN Constipation 02/21/20 09/07/23 History loperamide 2 mg capsule (Imodium 2 mg PO DAILY PRN Diarrhea 02/21/20 12/14/23 History A-D) multivitamin 1 tab PO DAILY 02/21/20 12/14/23 History ondansetron HCl 8 mg tablet 8 mg PO Q8H 02/21/20 12/14/23 History (Zofran) omeprazole 20 mg tablet,delayed 20 mg PO DAILY Heartburn 02/03/23 12/14/23 History release Calcium 500mg + Vit D3 25mcg 1 tab PO DAILY 02/06/23 12/14/23 History cholecalciferol (vitamin D3) 100 100 mcg PO DAILY 02/06/23 12/14/23 History mcg (4,000 unit) tablet magnesium glycinate-mag oxide 240 mg PO DAILY 02/06/23 12/14/23 History felodipine 5 mg tablet,extended 5 mg PO QDAY #90 tabs 05/15/23 12/14/23 Rx release 24 hr ondansetron 4 mg disintegrating 4 mg PO Q6H PRN nausea and 09/07/23 12/14/23 Rx tablet vomiting #20 tabs Allergies Allergy/AdvReac Type Severity Reaction Status Date / Time chlorhexidine Allergy Intermediate Dermatitis Verified 12/14/23 10:49 latex Allergy Intermediate Dermatitis Verified 12/14/23 10:49 montelukast [From Singulair] Allergy Intermediate Headache Verified 12/14/23 10:49 silver Allergy Intermediate Rash/Dermat Verified 12/14/23 10:49 itis aspirin [ASPIRIN] Allergy Mild Respiratory Verified 12/14/23 10:49 distress grape [GRAPE] Allergy Mild RESPIRATORY Verified 12/14/23 10:49 DISTRESS lisinopril [LISINOPRIL] Allergy Unknown cough Verified 12/14/23 10:49 Iodinated Contrast Media Allergy Respiratory Verified 12/14/23 10:49 distress gabapentin AdvReac Severe sedation Verified 12/14/23 10:49 celecoxib [From Celebrex] AdvReac Intermediate GI Verified 12/14/23 10:49 intolerance TARTRAZINE Allergy Severe RESPIRATORY Uncoded 09/07/23 14:24 DISTRESS FOOD COLORING Allergy Mild RESPIRATORY Uncoded 09/07/23 14:24 DISTRESS Exam Vital Signs (past 8 hours): - 12/14/23 11:02 Temperature 97.9 F Pulse Rate 85 Respiratory Rate 16 Blood Pressure 144/84 H Pulse Oximetry 97 Oxygen Delivery Method Room Air Oxygen Delivery Method Room Air Const General: No acute distress Resp Effort & Inspection: normal respiratory effort Assessment & Plan Assessment and plan (1) Colon cancer screening: Status: Acute Plan We reviewed the risks and benefits of colonoscopy for colon cancer screening and she would like to proceed. Time-Based Coding :: [TOTAL MINUTES] spent with patient and on the chart (including review of chart, obtaining history, exam, reviewing outside data, placing orders, documenting exam and treatment plan, and counseling patient) on [DATE].
[2023-12-14] MEDS: LACTATED RINGERS 1,000 ML 42 ML IV (11:39)
--- NOTE | 2023-12-14 12:17 | PM.OP.COLON ---
Operative Date/Time/Diagnoses Date of procedure: 12/14/23 Time of procedure: 12:17 Pre-op diagnosis: Colon cancer screening Post-op diagnosis: same Procedure & Clinicians Study performed: Colonoscopy Same procedure as scheduled: Yes Surgeon: Goran Jameson Procedure Notes Procedure in detail: Surgeon: Goran Jameson MD Anesthesia: Maynor Haywood D.O. Procedure: The patient was brought to the endoscopy suite, placed in left lateral decubitus position. The patient was connected to monitoring devices. A time-out was performed. Sedation was administered. Once the patient was adequately sedated, a digital rectal exam was performed and was normal. The scope was then inserted and advanced to the cecum where the appendiceal orifice was identified and photographed. The scope was then slowly withdrawn over greater than 6 minutes. The mucosa was thoroughly inspected. There was 7 mm polyp in the descending colon removed with a cold snare. The scope was retroflexed in the rectum. One small internal hemorrhoid was noted. The scope was straightened and removed. The patient was awakened and brought to recovery. Scope withdrawal time: 6 minutes Sedation time: 14 minutes EBL: 0 Findings: 7 mm polyp in the descending colon Post-procedure Disposition: PACU
[2023-12-14 12:23] VITALS: BP 92/41; PULSE 78; RESP 14; TEMP 36.4; O2SAT 95
[2023-12-14 12:25] VITALS: BP 100/58; PULSE 73; RESP 18; O2SAT 97
[2023-12-14 12:30] VITALS: BP 129/71; PULSE 74; RESP 14; O2SAT 97
[2023-12-14 12:37] VITALS: BP 132/74; PULSE 75; RESP 16; O2SAT 99
== END 2023-12-14 12:55 | disposition home or self-care (01) ==
PROVIDERS: PCP Internal Medicine; Referring Provider Surgery; Visit Provider Surgery
PROC: 0DJD8ZZ Inspection of Lower Intestinal Tract, Via Natural or Artificial Opening Endoscopic (ICD-10-PCS; CPT 45378; principal; 2023-12-14 11:15)
DX: Z12.11 Encounter for screening for malignant neoplasm of colon (principal); K64.8 Other hemorrhoids; K63.5 Polyp of colon
CPT/HCPCS: 45385; J2704

== ENCOUNTER → 2024-06-18 11:21 | Outpatient (CLI) | payer MEDICARE, SELFPAY ==
[2024-06-18 12:14] LABS: Add Manual Diff / Slide Review NO; Basophils Absolute Auto 100 /uL (0-100); Basophils Percent Auto 1.6 % (0-2); Eosinophils Absolute Auto 200 /uL (0-450); Eosinophils Percent Auto 2.6 % (2-4); Hematocrit 44.5 % (36-46); Hemoglobin 14.8 g/dL (12.0-16.0); Lymphocytes Absolute Auto 1900 /uL (1100-4500); Lymphocytes Percent Auto 30.3 % (25-40); Mean Corpuscular HGB Conc 33.3 % (30-36); Mean Corpuscular Hemoglobin 29.4 PG (26-34); Mean Corpuscular Volume 88.2 fL (80-100); Monocytes Absolute Auto 400 /uL (0-900); Monocytes Percent Auto 6.2 % (3-14); Neutrophils Absolute Auto 3700 /uL (1500-7000); Neutrophils Percent Auto 59.3 % (50-75); Platelet Count 284 X10^3/uL (150-400); Red Blood Cell Count 5.05 X10^6/uL (4.0-5.2); Red Cell Distribution Width 14.3 % (11.6-14.8); White Blood Cell Count 6.3 X10^3/uL (4.5-11.0)
[2024-06-18 12:42] LABS: Alanine Aminotransferase 17 IU/L (<35); Albumin 4.5 g/dL (3.5-5.0); Albumin Globulin Ratio 1.5 (1.0-2.8); Alkaline Phosphatase 98 U/L (38-126); Aspartate Aminotransferase 23 IU/L (14-36); BUN Creatinine Ratio 17.1 (6-22); Bilirubin Total 0.9 mg/dL (0.2-1.3); Blood Urea Nitrogen 13 mg/dL (7-17); Calcium 9.7 mg/dL (8.4-10.2); Carbon Dioxide 23 mmol/L (22-32); Chloride 105 mmol/L (98-107); Estimated Glomerular Filt Rate > 60 mL/min (>60); Glucose 110 mg/dL (80-110); HEMOLYSIS < 15 (0-50); Potassium 4.6 mmol/L (3.4-5.1); Sodium 137 mmol/L (137-145); Total Protein 7.5 g/dL (6.3-8.2)
== END ==
PROVIDERS: PCP Internal Medicine; Referring Provider Internal Medicine; Visit Provider Internal Medicine
DX: I10 Essential (primary) hypertension (principal); D64.9 Anemia, unspecified
CPT/HCPCS: 36415; 80053; 85025

== ENCOUNTER → 2024-09-16 09:53 | Outpatient (CLI) | payer MEDICARE, SELFPAY ==
--- NOTE | 2024-09-16 09:54 | DI.RAD.S_ITS ---
PROCEDURE: XR KNEE RT 3V INDICATIONS: right knee pain TECHNIQUE: 3 views of the knee were acquired. COMPARISON: None. FINDINGS: Mild knee joint effusion. 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 No radiographic evidence of displaced fracture, dislocation or high attenuation soft tissue foreign body IMPRESSION: Mild knee joint effusion and moderate degenerative changes as discussed above. If symptoms persist or worsen, or there is high clinical suspicion of right knee abnormality, MRI could be performed. Dictated by: Eugenio Daniels M.D. on 09/16/2024 at 10:48 Approved by: Eugenio Daniels M.D. on 09/16/2024 at 10:53
== END ==
PROVIDERS: PCP Internal Medicine; Referring Provider Internal Medicine; Visit Provider Internal Medicine
DX: M25.561 Pain in right knee (principal); M25.461 Effusion, right knee
CPT/HCPCS: 73562